=== PATIENT | female | born 1960 | race Caucasian/White ===

== ENCOUNTER → 2022-03-15 | Outpatient (CLI) | payer BC ==
[~2022-03-15] MED LIST: ALPR.25T GT; HYDR-3583 PO; NAPR-243 PO; TRIA1TAB2 PO
--- NOTE | 2022-03-15 13:53 | Diagnostic Imaging Report ---
INDICATION: Palpable lump left breast Correlation is made with prior mammogram from 11/03/2018 and 05/03/2014. 2-D and 3-D bilateral diagnostic mammography was performed with CAD. Scattered fibroglandular densities are noted bilaterally. There is a lobulated mass in the upper outer left breast posterior depth at the area of palpable abnormality. Multiple smaller adjacent nodules are present as well. Features are concerning for breast neoplasm with satellite nodules. Further evaluation with ultrasound is recommended. The right breast is unremarkable. No suspicious microcalcifications are seen. Axillae are unremarkable. IMPRESSION: Lobulated mass upper outer left breast at the area of palpable abnormality with adjacent smaller nodules. Features are concerning for breast neoplasm with satellite nodules. Further evaluation with ultrasound is recommended and will be performed today. Evaluation of the left axilla with ultrasound is recommended as well and will be performed. ACR BI-RADS Category 0: Incomplete. (Needs additional imaging evaluation). Result letter will be mailed to the patient. Note: At least 10% of breast cancer is not imaged by mammography. BI-RADS Category 0 Dictated by: Dictated on workstation # [id number]
--- NOTE | 2022-03-15 17:27 | Diagnostic Imaging Report ---
Indication: Palpable lump left breast. Correlation is made with diagnostic mammogram earlier same day. Sonographic interrogation of the area of lump in the upper outer left breast was performed. There is an irregular hypoechoic solid mass at the 1:00 location of the left breast, 6 to 7 cm from the nipple measuring 2.6 x 2.6 x 2.3 cm. There is internal vascularity present. A small adjacent nodule is present as well, suspicious for a satellite nodule. Left axilla was evaluated, as well. A fatty lymph node measures 2.3 x 1.1 x 1.7 cm. A more hypoechoic node measures 1.5 x 1.1 cm, indeterminate. IMPRESSION: BI-RADS Category 4 Solid irregular mass at the 1:00 location of the left breast corresponding to the mammographic and palpable abnormality. This is concerning for a breast neoplasm and tissue sampling is recommended. This would be amenable to ultrasound-guided core biopsy. There is an indeterminate lymph node in the left axilla. Tissue sampling of a lymph node could be performed as well. ACR BI-RADS Category 4: Suspicious abnormality. Result letter will be mailed to the patient. Note: At least 10% of breast cancer is not imaged by mammography. Dictated by: Dictated on workstation # [id number]
== END ==
LOC: RAD 13:15
PROVIDERS: ATTEND Family Medicine
DX: N63.21 Unspecified lump in the left breast, upper outer quadrant (principal); Z85.3 Personal history of malignant neoplasm of breast
CPT/HCPCS: 76642; 77066; G0279; 77062

== ENCOUNTER → 2022-03-22 | Outpatient (CLI) | payer BC ==
[~2022-03-22] VITALS: Ht 160 cm; Wt 93.2 kg
[~2022-03-22] MED LIST changes: +LIDOCAINE 1% INJ 50 ML (XYLOCAINE) VIAL IJ ONE
--- NOTE | 2022-03-22 10:53 | Diagnostic Imaging Report ---
INDICATION: Enlarged left axillary lymph node Left axilla was prepped and draped in the usual sterile fashion. Small amount of 1% lidocaine was utilized for local anesthesia. A total of 3 core biopsies were made of the hypoechoic mildly enlarged lymph node in the left axilla utilizing 14-gauge Achieve needle. A marker clip was then deployed. Hemostasis was obtained using manual compression. Patient tolerated the procedure well and was sent for post procedure mammogram in satisfactory condition. IMPRESSION: Successful ultrasound-guided core biopsy of an enlarged left axillary lymph node. Pathology results are currently pending. Dictated by: Dictated on workstation # [id number]
--- NOTE | 2022-03-22 11:03 | Diagnostic Imaging Report ---
INDICATION: Left breast mass. Patient presents for ultrasound-guided biopsy. Patient was brought to the sonographic suite and placed on table in the supine position. Ultrasound imaging of the left breast was performed to evaluate appropriate entry site. Left breast was then prepped and draped in usual sterile fashion. Small amount of 1% lidocaine was utilized for local anesthesia. Total of 4 core biopsies were made of the solid mass at the 1:00 location left breast, 6 cm from the nipple, utilizing the 14-gauge Achieve needle. A marker clip was deployed. Hemostasis was obtained using manual compression. Patient tolerated the procedure well. IMPRESSION: Successful ultrasound-guided core biopsy of the solid mass 1:00 location left breast. Pathology results are currently pending. Dictated by: Dictated on workstation # [id number]
--- NOTE | 2022-03-22 11:03 | Diagnostic Imaging Report ---
INDICATION: Left breast mass. Patient status post ultrasound-guided left breast biopsy and left axillary lymph node biopsy. Unilateral left 2-D, CC and ML mammography was performed after patient underwent ultrasound-guided biopsy. There is a marker clip in the mass in the upper outer left breast. The left axillary lymph node and clip were not included on this exam. IMPRESSION: Marker clip located within the mass in the upper outer left breast, status post ultrasound-guided biopsy. Dictated by: Dictated on workstation # [id number]
== END ==
LOC: RAD 08:22
PROVIDERS: ATTEND Family Medicine
DX: N63.21 Unspecified lump in the left breast, upper outer quadrant (principal)
CPT/HCPCS: 19083; 76942; 77065; A4648; G0279

== ENCOUNTER 2022-11-29 11:54 | Outpatient (RCR) | payer BC ==
[~2022-11-29 11:54] MED LIST changes: -LIDOCAINE 1% INJ 50 ML (XYLOCAINE) VIAL IJ ONE
== END 2022-12-01 | disposition home or self-care (01) ==
LOC: ONC 11:54
PROVIDERS: ATTEND Radiology Radiation Oncology
DX: Z51.0 Encounter for antineoplastic radiation therapy (principal); C50.412 Malignant neoplasm of upper-outer quadrant of left female breast
CPT/HCPCS: 77280; 77290; 77295; 77300; 77334; 77336; 77417; 77470; 99205

== ENCOUNTER → 2023-01-01 | Outpatient (RCR) | payer BC | END | disposition home or self-care (01) | LOC: ONC 12-02 14:20 | PROVIDERS: ATTEND Radiology Radiation Oncology | DX: Z51.0 Encounter for antineoplastic radiation therapy (principal); C50.412 Malignant neoplasm of upper-outer quadrant of left female breast | CPT/HCPCS: 77290; 77300; 77332; 77334; 77336; 77417 ==

== ENCOUNTER 2023-01-03 14:33 | Outpatient (RCR) | payer BC | END 2023-01-31 | disposition home or self-care (01) | LOC: ONC 14:33 | PROVIDERS: ATTEND Radiology Radiation Oncology | DX: Z51.0 Encounter for antineoplastic radiation therapy (principal); C50.412 Malignant neoplasm of upper-outer quadrant of left female breast; I10 Essential (primary) hypertension; K21.9 Gastro-esophageal reflux disease without esophagitis | CPT/HCPCS: 77336 ==

== ENCOUNTER 2023-02-06 10:26 | Outpatient (RCR) | payer BC | END 2023-03-03 | disposition home or self-care (01) | LOC: ONC 10:26 | PROVIDERS: ATTEND Radiology Radiation Oncology | DX: C50.412 Malignant neoplasm of upper-outer quadrant of left female breast (principal); I10 Essential (primary) hypertension; K21.9 Gastro-esophageal reflux disease without esophagitis | CPT/HCPCS: 99213 ==